=== PATIENT | male | born 1990 | race Caucasian/White ===

== ENCOUNTER → 2016-09-07 | Outpatient (CLI) | payer MEDICAID | LOC: BRMIMAGING 13:21 | PROVIDERS: ATTEND Physician Assistant | DX: R59.9 Enlarged lymph nodes, unspecified (principal); R22.41 Localized swelling, mass and lump, right lower limb | CPT/HCPCS: 76882-PO ==

== ENCOUNTER → 2017-01-20 | Outpatient (CLI) | payer MEDICAID | LOC: BRMIMAGING 13:14 | PROVIDERS: ATTEND Physician Assistant | DX: R59.9 Enlarged lymph nodes, unspecified (principal) ==